=== PATIENT | male | born 1960 | race Caucasian/White ===

== ENCOUNTER 2019-09-11 18:36 | Emergency (ER) | payer MEDICAID ==
[~2019-09-11] VITALS: Ht 180.3 cm; Wt 77.3 kg
[2019-09-11] MEDS ORDERED: ketorolac trometh inj. 60 MG/2 ML VIAL IM ONE (18:55)
[2019-09-11 20:08] LABS: BASOPHILS # (AUTO) 0.1 X10'3 (0-0.2); BASOPHILS % (AUTO) 1.2 % (0-1); EOSINOPHILS # (AUTO) 0.5 X10'3 (0-0.9); EOSINOPHILS % (AUTO) 5.9 % (0-6); HEMATOCRIT 47.7 % (42.0-52.0); HEMOGLOBIN 16.7 g/dl (14.0-17.9); LYMPHOCYTES # (AUTO) 1.8 X10'3 (1.1-4.8); LYMPHOCYTES % (AUTO) 23.1 % (21-51); MEAN CORPUSCULAR HEMOGLOBIN 33.6 PG (27.0-31.0); MEAN CORPUSCULAR HGB CONC 35.1 g/dL (33.0-36.5); MEAN CORPUSCULAR VOLUME 95.8 FL (78-98); MEAN PLATELET VOLUME 7.5 FL (7.4-10.4); MONOCYTES # (AUTO) 0.5 X10'3 (0-0.9); MONOCYTES % (AUTO) 6.9 % (2-12); NEUTROPHILS # (AUTO) 4.8 X10'3 (1.8-7.7); NEUTROPHILS % (AUTO) 62.9 % (42-75); PLATELET COUNT 350 X10'3 (140-440); RED BLOOD COUNT 4.97 X10'6 (4.70-6.10); RED CELL DISTRIBUTION WIDTH 13.5 % (11.5-14.5); WHITE BLOOD COUNT 7.7 X10'3 (4.5-11.0)
[2019-09-11 20:17] LABS: PARTIAL THROMBOPLASTIN TIME 30 SECONDS (22-32)
[2019-09-11 20:19] LABS: ALANINE AMINOTRANSFERASE 99 U/L (12-78); ALBUMIN 2.9 G/DL (3.4-5.0); ALBUMIN/GLOBULIN RATIO 0.5 (1.1-1.5); ALKALINE PHOSPHATASE 97 IU/L (46-116); ANION GAP 6 (8-16); ASPARTATE AMINO TRANSFERASE 63 U/L (10-37); BILIRUBIN,TOTAL 0.4 MG/DL (0.1-1.0); BLOOD UREA NITROGEN 18 MG/DL (7-18); BUN/CREATININE RATIO 18.6 (5.4-32.0); CHLORIDE 102 MMOL/L (99-107); CREATININE 0.97 MG/DL (0.60-1.10); GLUCOSE 98 MG/DL (70-104); LIPASE 110 U/L (73-393); MAGNESIUM 1.9 MG/DL (1.5-2.4); POTASSIUM 4.2 MMOL/L (3.5-5.1); SODIUM 137 MMOL/L (135-145); TOTAL CARBON DIOXIDE 29.3 MMOL/L (24-32); TOTAL PROTEIN 8.5 G/DL (6.4-8.2); eGFR 79 ML/MIN
[2019-09-11 20:24] LABS: CALCIUM 9.1 MG/DL (8.5-10.1)
[2019-09-11 21:00] LABS: C-REACTIVE PROTEIN 0.77 MG/DL (0.0-0.5)
[2019-09-11] MEDS ORDERED: morphine 4 MG/ML inj SYRINge IV ONE (21:30)
--- NOTE | 2019-09-11 21:43 | NUR ---
CALLED AND GAVE REPORT TO ROBBIE AT [facility] CONCERNING PT TRANSPORT.
[2019-09-11 22:12] VITALS: BP 144/80
[2019-09-13 08:43] LABS: % FREE PSA 26.2 % (.); CARCINOEMBRYONIC ANTIGEN 3.1 ng/mL (0.0-4.7); PSA, FREE 0.55 ng/mL
--- NOTE | 2019-09-14 08:10 | NUR ---
LAB WORK RECEIVED FROM VISIT ON 09/11/19. [facility] CALLED TO VERIFY THAT PT WAS STILL ADMITTED. CHUCK BRAVO VERIFIED THAT PT WAS ADMITTED AND REQUESTED THAT LAB WORK BE FAXED TO [phone]. LAB FAXED TO [facility] REQUESTED.
== END 2019-09-11 22:00 | disposition short-term general hospital (02) ==
LOC: ER 18:37
DX: M46.46 Discitis, unspecified, lumbar region (principal); G95.20 Unspecified cord compression; Z98.890 Other specified postprocedural states; Z87.891 Personal history of nicotine dependence
CPT/HCPCS: 36415; 72131; 80053; 82378; 83690; 83735; 84153; 84154; 85025; 85610; 85651; 85730; 86140; 96372; 96374; 99291; J1885; J2270